=== PATIENT | female | born 1955 | race Caucasian/White ===

== ENCOUNTER → 2018-05-19 | Outpatient (CLI) | payer BC ==
--- NOTE | 2018-05-19 16:49 | KCIC ---
Bilateral knees, 4 views, 05/19/2018: HISTORY: Osteoarthritis There is moderate narrowing of the medial compartment of both knee joints with mild marginal spurring. There is mild spurring at the patellofemoral articulations, more so on the left. No fracture or dislocation is identified. No large joint effusion is evident. IMPRESSION: 1. Moderate degenerative change at both knees. 2. No acute abnormality is detected. Electronically signed by: Ravindra Park MD (05/19/2018 4:46 PM) [facility]
--- NOTE | 2018-05-19 16:52 | KCIC ---
Bilateral hands, 2 views, 05/19/2018: HISTORY: Osteoarthritis PA views of both hands were obtained as requested. There is mild narrowing of scattered interphalangeal joints bilaterally. No bone erosions are seen. There is only minimal spurring at the first CMC articulations. No fracture or subluxation is evident on this limited exam. IMPRESSION: Mild scattered degenerative changes. Electronically signed by: Ravindra Park MD (05/19/2018 4:48 PM) [facility]
--- NOTE | 2018-05-19 17:03 | KCIC ---
Single lateral view of the cervical spine Clinical indications: Osteoarthritis. FINDINGS: The lateral view was performed in flexion. There is normal physiologic subluxation at C3-4 and C4-5 and C5-6. No abnormal displacement between the anterior arch of C1 and the odontoid process of C2 is seen. There is moderate degenerative spurring without disc space narrowing at C4-5. There is moderate degenerative endplate spurring and mild disc space narrowing at C5-6 and C6-7. No radiolucent fracture line is evident. No lytic process or discitis is seen. No prevertebral soft tissue swelling is evident. IMPRESSION: Degenerative cervical spondylosis. Electronically signed by: Wilfred Ureña MD (05/19/2018 5:00 PM) [facility]
== END | disposition home or self-care (01) ==
LOC: KCIC 15:53
PROVIDERS: ATTEND Internal Medicine Rheumatology
DX: M17.0 Bilateral primary osteoarthritis of knee (principal); M19.042 Primary osteoarthritis, left hand; M19.041 Primary osteoarthritis, right hand; M47.812 Spondylosis without myelopathy or radiculopathy, cervical region; M48.02 Spinal stenosis, cervical region; F51.01 Primary insomnia; R76.0 Raised antibody titer
CPT/HCPCS: 72040; 73120; 73560

== ENCOUNTER → 2018-09-01 | Outpatient (CLI) | payer BC ==
--- NOTE | 2018-09-01 16:54 | KCIC ---
Examination: 3 views of the left ankle and left foot HISTORY: History of left heel, Achilles pain. COMPARISON: None available. FINDINGS: Small posterior and inferior calcaneal enthesophyte identified. The ankle mortise grossly appears unremarkable. IMPRESSION: No acute osseous findings. Electronically signed by: Teddy Srivastava MD (09/01/2018 4:51 PM) [place] [id number]
--- NOTE | 2018-09-01 16:54 | KCIC ---
Examination: 3 views of the left ankle and left foot HISTORY: History of left heel, Achilles pain. COMPARISON: None available. FINDINGS: Small posterior and inferior calcaneal enthesophyte identified. The ankle mortise grossly appears unremarkable. IMPRESSION: No acute osseous findings. Electronically signed by: Teddy Srivastava MD (09/01/2018 4:51 PM) [place] [id number]
== END | disposition home or self-care (01) ==
LOC: KCIC 15:14
PROVIDERS: ATTEND Physician Assistant Medical
DX: M77.52 Other enthesopathy of left foot and ankle (principal); M76.62 Achilles tendinitis, left leg
CPT/HCPCS: 73610; 73630

== ENCOUNTER → 2019-02-17 | Outpatient (CLI) | payer BC ==
[~2019-02-17] MED LIST: ALBU2.5V8 IH; BECL10.62 IH; GABA600T7 PO; GADOTERATE 5 MMOL/10ML VIAL. IVP ONE; LEVO25TA4 PO; LISI2.5T PO; MECL12.52 PO
--- NOTE | 2019-02-17 16:14 | KCIC ---
MRI of the Brain without and with Contrast 02/17/2019 Clinical History: Dizziness and headaches since October. Technique: Unenhanced T1-weighted sagittal and axial and FLAIR, T2-weighted, gradient echo and diffusion-weighted axial images of the brain were obtained. After the intravenous administration of 20 cc of DOTAREM, enhanced T1-weighted axial and coronal images of the brain were obtained. Findings: No previous study is available for comparison. There is generalized parenchymal atrophy. Patchy and small scattered areas of abnormally increased signal intensity are seen within the periventricular and subcortical white matter of both cerebral hemispheres on the FLAIR and T2-weighted images consistent with areas of minimal small vessel ischemic disease. A somewhat oval-shaped area of abnormal enhancement is seen involving the right 7th and 8th nerve complex within the right internal auditory canal. This measures 8 x 4 x 3 mm in transverse, AP and craniocaudal dimensions. This is consistent with a vestibular schwannoma (acoustic neuroma0. The left internal auditory canal is within normal limits. No acute parenchymal abnormality is seen. No abnormal area of contrast enhancement is noted. No extra-axial fluid collection is seen. There is no MRI evidence of acute ischemia/infarction. Very mild mucosal thickening is seen scattered throughout the paranasal sinuses. Normal flow voids are seen within the major vascular structures surrounding the brain parenchyma. Impression: 1. 8mm vestibular schwannoma (acoustic neuroma) is seen involving the right internal auditory canal. 2. No acute parenchymal abnormality is seen. Electronically signed by: Spike Vale MD (02/17/2019 4:11 PM) [id number]
== END | disposition home or self-care (01) ==
LOC: KCIC MRI 13:01
PROVIDERS: ATTEND Physician Assistant Medical
DX: D33.3 Benign neoplasm of cranial nerves (principal); G31.89 Other specified degenerative diseases of nervous system; I10 Essential (primary) hypertension
CPT/HCPCS: 70553; A9575